=== PATIENT | female | born 1965 | race Caucasian/White ===

== ENCOUNTER 2022-06-23 19:16 | Emergency (ER) | payer OTHER ==
[~2022-06-23] VITALS: Ht 172.7 cm; Wt 78.6 kg
[2022-06-23 19:48] VITALS: BP 116/75
[2022-06-23] MEDS ORDERED: THYR30 PO ×2 (19:55→20:13)
[2022-06-23] MEDS ORDERED: GABA-1216 PO ×2 (19:55→20:13)
[2022-06-23] MEDS ORDERED: FLUT1BLS8 IH (19:55)
[2022-06-23] MEDS ORDERED: MOME17SP11 NASAL (19:55)
[2022-06-23] MEDS ORDERED: VENL50TA44 PO (19:55)
[2022-06-23] MEDS ORDERED: THYR90TA PO ×2 (20:23→20:31)
== END 2022-06-23 20:34 | disposition home or self-care (01) ==
LOC: EMS 19:16
DX: E05.90 Thyrotoxicosis, unspecified without thyrotoxic crisis or storm (principal); F41.9 Anxiety disorder, unspecified; J45.909 Unspecified asthma, uncomplicated; Z79.899 Other long term (current) drug therapy
CPT/HCPCS: 99281; Z7502